=== PATIENT | female | born 1995 | race Caucasian/White ===

== ENCOUNTER 2020-04-01 04:20 | Emergency (ER) | payer MEDICAID ==
[~2020-04-01] VITALS: Ht 160 cm; Wt 90.7 kg
--- NOTE | 2020-04-01 04:20 | NUR ---
PT PRESENTS TO ER C/O ABD PAIN, N/V. PT STATES THAT THE VOMITING STARTED AT 2100. PT ALSO STATES THAT SHE TOOK 60 IBUPROFEN 600MG AND CLINDAMYCIN BECAUSE SHE "WANTS TO GO TO SLEEP AND NEVER WAKE UP" PT APPEARS TEARFUL AND ANXIOUS, RUBBING HER HEAD AND HER LEFT JAW. PT BREATHING EVENLY AND UNLABORED, CHANGED OUT OF HER CLOTHES INTO A GOWN AND HOOKED TO A MONITOR. URINE SENT TO THE LAB. PT MADE COMFORTABLE WITH BLANKET AND CALL LIGHT WITHIN REACH. WILL CONTINUE TO MONITOR.
[2020-04-01] MEDS ORDERED: HYDROMORPHONE HCL 2 MG TABLET ONE (04:52)
[2020-04-01] MEDS ORDERED: ONDANSETRON 4 MG TAB.RAPDIS ONE (04:53)
--- NOTE | 2020-04-01 04:55 | NUR ---
SPOKE WITH ETHAN FROM POISON CONTROL. RECOMMENDATIONS: MONITOR FOR METABOLIC ACIDOSIS/RENAL FAILURE ADMINISTER IV FLUIDS OBTAIN CHEM PANEL, TOX SCREEN, LFT REPEAT LABS IN 4 HOURS MONITOR PATIENT FOR A TOTAL OF [address] PECK MADE AWARE
[2020-04-01] MEDS ORDERED: HYDROMORPHONE HCL 2 MG TABLET PO PRN (05:00)
[2020-04-01] MEDS ORDERED: ONDANSETRON 4 MG TAB.RAPDIS SL ONE (05:00)
--- NOTE | 2020-04-01 05:10 | NUR ---
LAB AT BEDSIDE FOR BLOOD DRAW.
[2020-04-01 05:21] LABS: HEMOGLOBIN 13.3 g/dL (11.5-14.8); MONOCYTES # (AUTO) 0.8 /CMM (0.1-1.30); NEUTROPHILS # (AUTO) 3.6 /CMM (1.8-8.9); RED BLOOD CELL COUNT(AUTO) 5.25 MIL/uL (4.0-5.2)
[2020-04-01 05:23] LABS: BILIRUBIN,URINE Negative (NEGATIVE); COLOR,URINE YELLOW (YELLOW); LEUKOCYTE ESTERASE ,URINE Negative (NEGATIVE); NITRITE, URINE Negative (NEGATIVE); PROTEIN,URINE Negative (NEGATIVE); UGLUCOSE Negative (NEGATIVE); UROBILINOGEN,URINE 0.2 EU/dL (0.2)
[2020-04-01 05:27] LABS: BASOPHILS % (AUTO) 0.7 % (0.0-2.0); EOSINOPHILS % (AUTO) 3.4 % (0.0-6.0); HEMATOCRIT 41 % (33-45); LYMPHOCYTES # (AUTO) 2.6 /CMM (0.8-4.8); LYMPHOCYTES % (AUTO) 35.5 % (20.0-44.0); MEAN CORPUSCULAR HGB CONC 33 g/dl (31.0-36.0); MEAN CORPUSCULAR VOLUME 78 fL (82-100); MONOCYTES % (AUTO) 11.6 % (2.0-12.0); NEUTROPHILS % (AUTO) 48.8 % (43.0-81.0); PLATELET COUNT (AUTO) 291 /CMM (150-450); WHITE BLOOD COUNT (AUTO) 7.3 K/uL (4.3-11.0)
[2020-04-01 05:30] LABS: CALCIUM, SERUM 9.1 mg/dL (8.5-10.1); CARBON DIOXIDE 23 mmol/L (21-32); CHLORIDE 105 mmol/L (98-107); CREATININE 0.8 mg/dL (0.6-1.3); GLUCOSE 130 mg/dL (74-106); POTASSIUM 4.3 mmol/L (3.5-5.1); SODIUM SERUM 138 mmol/L (136-145); UREA NITROGEN, BLOOD 11 mg/dL (7-18)
[2020-04-01 05:34] LABS: ALANINE AMINOTRANSFERASE 28 U/L (12-78); ALBUMIN 3.7 g/dL (3.4-5.0); ALCOHOL, BLOOD < 3 mg/dL (0-0); ALKALINE PHOSPHATASE 139 U/L (46-116); ASPARTATE AMINOTRANSFERASE 16 U/L (15-37); BILIRUBIN,TOTAL 0.1 mg/dL (0.2-1.0); TOTAL PROTEIN, SERUM 7.7 g/dL (6.4-8.2)
[2020-04-01 05:35] LABS: ACETAMINOPHEN < 10 ug/ml (10-30)
[2020-04-01] MEDS ORDERED: FAMOTIDINE/PF INJ 20 MG/2 ML VIAL IV ONE (06:00)
[2020-04-01] MEDS ORDERED: FAMOTIDINE (20 MG) 20 MG TABLET PO ONE ×2 (06:00→06:30)
--- NOTE | 2020-04-01 06:30 | NUR ---
COVID SWAB SENT TO LAB
[2020-04-01] MEDS ORDERED: FAMOTIDINE (20 MG) 20 MG TABLET ONE (06:35)
--- NOTE | 2020-04-01 07:25 | NUR ---
GAVE REPORT TO BLANKA ROBLES FOR [facility]
--- NOTE | 2020-04-01 08:30 | NUR ---
PATIENT ASLEEP BUT EASILY AROUSABLE. NO DISTRESS NOTED. VITALS STABLE.
--- NOTE | 2020-04-01 09:12 | NUR ---
CORRECT VS ARE 146/93 VT 95 96%
--- NOTE | 2020-04-01 09:13 | NUR ---
LAB CALLED PT COVID RESULT NEGATIVE (-)
[2020-04-01 09:37] LABS: CALCIUM, SERUM 8.5 mg/dL (8.5-10.1); CREATININE 0.7 mg/dL (0.6-1.3); POTASSIUM 4.1 mmol/L (3.5-5.1)
--- NOTE | 2020-04-01 11:56 | NUR ---
Social Work Consult: SW consult was requested by ER staff Uli due to the pt having suicidal ideation and due to the pts overdose. Pt is a 25 year old female who was admitted to the Emergency Room due to overdosing on 60 tablets of 600 mg ibuprofen and 8 tablets of clindamycin. AMADEO met with the pt at bedside (BED 10) in the Emergency Room with licensed social worker, Daphne Bernal, as the pt wanted to speak to someone who speaks Japanese. Pt states that she overdosed on the pills because she felt like she was in a tremendous amount of pain due to tooth nerve problems. Pt appears to be alert and oriented x4 (time, place, self and situation). Pt appears to be in a depressed mood and presents with a distressed and tearful affect. Pt appears to be fatigued and lethargic. Pt was able to maintain appropriate eye contact but struggled to be aroused at first. Pt was also able to maintain appropriate tone of voice. Pt appears to be well groomed and appropriately dressed. Pt states that she has a best friend named Eliud ([phone]) who she can identify as a support person. AMADEO called the pts friend, Eliud ([phone]), and left a voicemail message. Pt states that she also has a service dog that she received 2 months ago and that she considers the service dog to be a support as well. Pt states that her trigger for her overdose also consists of the fact that her brother a few years ago on this date. Pt appears to be tearful when speaking about her brother. Pt states that she has attempted suicide "many times" and that she was psychiatrically hospitalized 6 months ago. Pt states that she has been diagnosed with Bipolar and Depression in the past. Pt states that she has psychotropic medications prescribed to her but that she is non compliant with them because she feels "it does not help." Pt states that she is feeling actively suicidal at this time and denies homicidal ideation. Pt also denies auditory and visual hallucinations. Pt states that she wants to be discharged back to her apartment where she lives alone but AMADEO informed her that did not seem like a safe plan and explained how a voluntary psychiatric hospitalization works. Pt states that she agrees to be voluntarily admitted to a psychiatric hospital and states that after she would like to be discharged home so that she can spend the holidays with her friend, Eliud. Plan: SW will refer the pt to [facility] and [facility] for voluntary admission. SW will follow up for placement.
--- NOTE | 2020-04-01 12:23 | NUR ---
Social Work Discharge Planning: SW faxed a referral for voluntary psychiatric hospitalization to the following two placements listed below. [facility] with attention to [place] to the fax number: [phone] [facility] with attention to Admissions to the fax number: [phone].
--- NOTE | 2020-04-01 13:31 | NUR ---
PT IS ACCEPTED AT [facility] UNDER THE CARE OF DR. COELLO AND DR. ALVAREZ. CALL [phone] FOR REPORT
--- NOTE | 2020-04-01 13:47 | NUR ---
CALLED TRANSPORT ETA IS 1600 PER CHRISTIAN
[2020-04-01] MEDS ORDERED: LORAZEPAM 1 MG TABLET ONE (15:53)
[2020-04-01] MEDS ORDERED: LORAZEPAM 1 MG TABLET PO ONE (16:00)
[2020-04-01 16:06] VITALS: BP 123/70
--- NOTE | 2020-04-01 16:21 | NUR ---
REPORT GIVEN TO [facility]. PATIENT A/OX4, BREATHING EVEN AND UNLABORED, NO DISTRESS NOTED. TRANSFERRED TO [facility]. BELONGINGS GIVEN TO PATIENT.
== END 2020-04-01 16:22 ==
LOC: ER 04:20 → EDBD 04:20 → ER 16:22
DX: T39.312A Poisoning by propionic acid derivatives, intentional self-harm, initial encounter (principal); T36.8X2A Poisoning by other systemic antibiotics, intentional self-harm, initial encounter; Y92.89 Other specified places as the place of occurrence of the external cause; G89.29 Other chronic pain; R68.84 Jaw pain; R11.2 Nausea with vomiting, unspecified; R10.9 Unspecified abdominal pain; Z82.49 Family history of ischemic heart disease and other diseases of the circulatory system; Z87.891 Personal history of nicotine dependence
CPT/HCPCS: 36415; 80048 ×2; 80076; 80299 ×2; 80307; 80320; 81003; 84703; 85025; 87426; 93005; 99285; C9803; Q0162; G0480

== ENCOUNTER 2021-03-28 09:22 | Emergency (ER) | payer MEDICAID, OTHER ==
[~2021-03-28] VITALS: Ht 165.1 cm; Wt 98.0 kg
[2021-03-28 09:29] VITALS: BP 125/89
--- NOTE | 2021-03-28 09:33 | NUR ---
BIBS FOR COUGH, FEVER 100.8F, N/V AND GEN BOD PAIN X4 DAYS. IN ROOM AIR AND DENIES SOB/ RESPIRATIN REGULAR AND UNLABORED. WILL CONTINUE TO MONITOR THE PATIENT.
--- NOTE | 2021-03-28 09:36 | NUR ---
DR CUELLAR AT THE BEDSIDE
--- NOTE | 2021-03-28 09:45 | NUR ---
COVID PCR SWAB DONE AND SENT TO THE LAB
--- NOTE | 2021-03-28 09:58 | NUR ---
Patient discharged to home in stable condition. Written and verbal after care instructions given. Patient verbalizes understanding of instruction.
--- NOTE | 2021-03-30 11:52 | NUR ---
PT PCR COVID +; ATTEMPTED TO NOTIFY PT VIA PHONE CALL BUT NO RESPONSE AND VOICE MAIL BOX IS FULL
== END 2021-03-28 09:59 | disposition home or self-care (01) ==
LOC: ER 09:26
DX: U07.1 COVID-19 (principal); J45.909 Unspecified asthma, uncomplicated; Z91.018 Allergy to other foods
CPT/HCPCS: 99283; C9803; U0003